=== PATIENT | female | born 1950 | race Caucasian/White ===

== ENCOUNTER → 2016-08-22 | Outpatient (CLI) | payer OTHER ==
--- NOTE | 2016-08-22 14:54 | DX ---
Left shoulder, 3 views Clinical indication: Fall on ice. Shoulder pain. Findings: Bony alignment of the shoulder is anatomic. Mild arthritic changes are present at the gleno humeral joint and at the acromioclavicular joint. No evidence clavicular fracture. There is an old ri b fracture posterolaterally, 7th rib. Impression: 1. No evidence of fracture or dislocation of the shoulder. 2. Old left posterolateral 7th rib fracture. Stat report was relayed by Dr. Sergei Turk to Dr. Allison Henry on August 22, 2016, at 1451 hours .
== END ==
LOC: CIMAGING 12:18
PROVIDERS: ATTEND Family Medicine
DX: M25.511 Pain in right shoulder (principal)
CPT/HCPCS: 73030-PO

== ENCOUNTER → 2017-05-25 | Outpatient (CLI) | payer OTHER | LOC: CIMAGING 12:42 | PROVIDERS: ATTEND Family Medicine | DX: N60.12 Diffuse cystic mastopathy of left breast (principal); N60.99 Unspecified benign mammary dysplasia of unspecified breast | CPT/HCPCS: 76641; G0204 ==